=== PATIENT | female | born 1965 | race Caucasian/White ===

== ENCOUNTER 2024-01-20 13:39 | Emergency (ER) | payer OTHER | END 2024-01-20 15:23 | disposition home or self-care (01) | LOC: CSHERS 13:39 | DX: M25.512 Pain in left shoulder (principal); G89.29 Other chronic pain; S43.102S Unspecified dislocation of left acromioclavicular joint, sequela; V89.2XXS Person injured in unspecified motor-vehicle accident, traffic, sequela ==